=== PATIENT | male | born 1995 | race Caucasian/White ===

== ENCOUNTER 2023-04-19 07:59 | Emergency (ER) | payer MEDICAID ==
[~2023-04-19] VITALS: Ht 177.8 cm; Wt 75.0 kg
[2023-04-19 08:06] VITALS: BP 177/93; PULSE 150; RESP 18; TEMP 98.5; O2SAT 99
[2023-04-19] MEDS ORDERED: SODIUM CHLORIDE 0.9% 1,000 ML IV ONE (08:30)
== END 2023-04-19 09:30 | disposition left against medical advice (07) ==
LOC: ER 08:19
DX: F19.129 Other psychoactive substance abuse with intoxication, unspecified (principal); R00.2 Palpitations; Z98.890 Other specified postprocedural states
CPT/HCPCS: 99283; 93005; J7030

== ENCOUNTER 2023-04-19 10:08 | Emergency (ER) | payer MEDICAID ==
[~2023-04-19] VITALS: Ht 182.9 cm; Wt 68.0 kg
[2023-04-19 10:16] VITALS: BP 158/108; TEMP 98; O2SAT 100
[2023-04-19 10:24] VITALS: PULSE 114; RESP 22
[2023-04-19] MEDS ORDERED: SODIUM CHLORIDE 0.9% 1,000 ML IV ONE (12:00)
== END 2023-04-19 13:47 | disposition left against medical advice (07) ==
LOC: ER 10:08
DX: R07.89 Other chest pain (principal); Z53.21 Procedure and treatment not carried out due to patient leaving prior to being seen by health care provider
CPT/HCPCS: 99281; J7030

== ENCOUNTER 2023-04-19 14:16 | Emergency (ER) | payer MEDICAID ==
[~2023-04-19] VITALS: Ht 182.9 cm; Wt 68.0 kg
[2023-04-19 14:22] VITALS: BP 138/88; TEMP 98.5; O2SAT 100
[2023-04-19 14:23] VITALS: PULSE 114; RESP 16
== END 2023-04-19 17:41 | disposition left against medical advice (07) ==
LOC: ER 14:16
DX: F41.9 Anxiety disorder, unspecified (principal); Z53.21 Procedure and treatment not carried out due to patient leaving prior to being seen by health care provider
CPT/HCPCS: 99281

== ENCOUNTER 2023-08-05 07:37 | Emergency (ER) | payer MEDICAID ==
[~2023-08-05] VITALS: Ht 180.3 cm; Wt 77.1 kg
[2023-08-05 07:47] VITALS: O2SAT 100
[2023-08-05 09:19] LABS: CLARITY URINE CLOUDY (CLEAR); COLOR URINE YELLOW (YELLOW); GLUCOSE URINE NEGATIVE (NEGATIVE); KETONES URINE TRACE (NEGATIVE); LEUKOCYTE ESTERASE URINE NEGATIVE (NEGATIVE); NITRITE URINE NEGATIVE (NEGATIVE); OCCULT BLOOD URINE NEGATIVE (NEGATIVE); PH URINE 5.5 (4.5-8.0); PROTEIN URINE 1+ (NEGATIVE); SPECIFIC GRAVITY URINE 1.013 (1.005-1.030); UROBILINOGEN URINE 0.2 E.U./dL (0.2-1.0)
[2023-08-05 09:29] VITALS: BP 122/78; PULSE 108; RESP 18; TEMP 98.5
[2023-08-05 09:29] LABS: HYALINE CASTS URINE TNTC /lpf; MUCUS URINE 3+ /lpf (NONE/TRACE)
[2023-08-05 09:30] LABS: COARSE GRANULAR CASTS URINE 0-5 /lpf; SQUAMOUS EPITHELIAL CELL URINE 2+ /lpf (RARE/1+)
[2023-08-05 09:33] LABS: FINE GRANULAR CASTS URINE 0-5 /lpf; RBC URINE 0-2 /hpf (0-2)
[2023-08-05 09:34] LABS: BACTERIA URINE TRACE
[2023-08-05 09:42] LABS: *AMPHETAMINES SCREEN URINE PRESUMPTIVE POSITIVE (NEGATIVE); *BARBITURATES SCREEN URINE NEGATIVE (NEGATIVE); *BENZODIAZEPINES SCREEN URINE NEGATIVE (NEGATIVE); *COCAINE SCREEN URINE NEGATIVE (NEGATIVE); CANNABINOID URINE SCREEN NEGATIVE (NEGATIVE); ECSTASY MDMA SCREEN URINE NEGATIVE (NEGATIVE); METHADONE URINE SCREEN Neg (NEGATIVE); OPIATES URINE SCREEN NEGATIVE (NEGATIVE); PHENCYCLIDINE URINE SCREEN NEGATIVE (NEGATIVE)
== END 2023-08-05 09:31 | disposition home or self-care (01) ==
LOC: ER 08:08
DX: R06.02 Shortness of breath (principal); F15.10 Other stimulant abuse, uncomplicated; Z98.890 Other specified postprocedural states
CPT/HCPCS: 71045; 80305; 81003; 93005; 99285